=== PATIENT | female | born 1955 | race Caucasian/White ===

== ENCOUNTER → 2020-09-23 12:01 | Outpatient (CLI) | payer BC, SELFPAY | PROVIDERS: Visit Provider Nurse Practitioner Family | DX: Z20.822 Contact with and (suspected) exposure to COVID-19 (principal); U07.1 COVID-19 | CPT/HCPCS: U0003 ==

== ENCOUNTER 2022-03-11 11:25 | Emergency (ER) | payer BC, SELFPAY ==
--- NOTE | 2022-03-11 11:39 | PC.NURSE ---
DR BECERRA AT BEDSIDE TO EVALUATE PT
[2022-03-11 11:40] VITALS: BP 171/92; PULSE 77; RESP 17; TEMP 36.7; O2SAT 100; BMI 34.9
--- NOTE | 2022-03-11 11:41 | CT_ITS ---
PROCEDURE INFORMATION: Exam: CT Head Without Contrast Exam date and time: 03/11/2022 11:51 AM Age: 66 years old Clinical indication: Injury or trauma; Fall; Blunt trauma (contusions or hematomas); Without loss of consciousness; Additional info: Closed head injury with hematoma-- right side of forehead hit door knob when she fell TECHNIQUE: Imaging protocol: Computed tomography of the head without contrast. Radiation optimization: All CT scans at this facility use at least one of these dose optimization techniques: automated exposure control; mA and/or kV adjustment per patient size (includes targeted exams where dose is matched to clinical indication); or iterative reconstruction. Other protocol: This patient has received 0 known CTs and 0 known cardiac nuclear medicine studies in the 12 months prior to the current study. COMPARISON: No relevant prior studies available. FINDINGS: Brain: No acute post-traumatic brain injury. Symmetric caliber of the cortical sulci. Cerebral ventricles: Normal configuration of the ventricles. Paranasal sinuses: Low-grade left maxillary sinus mucoperiosteal disease. Mastoid air cells: No mastoid effusion. Bones/joints: No acute calvarial injury. Soft tissues: Right frontal scalp hematoma. IMPRESSION: 1. Right frontal scalp hematoma. 2. No acute post-traumatic brain injury.
--- NOTE | 2022-03-11 11:42 | [facility].EDFALL ---
Discharge Plan Disposition Patient Disposition: Home, Self-Care Condition: Fair Prescriptions Prescriptions: No Action amoxicillin-pot clavulanate 875-125 mg tablet 1 tab PO Q12H 10 Days Qty: 20 0RF Referrals Follow up/Referrals: Paulie Tomas MD [Primary Care Provider] - See instructions Activity Restrictions/Add. Instructions Additional Instructions/Restrictions: Return immediately to the emergency department if you worsen in any way. You may apply cold compresses to the affected area on your forehead. You may take Tylenol as needed for your pain. Please follow-up with your primary care doctor in about 5 days if you do not notice any improvement. Clinical Impressions Clinical Impression: Forehead contusion Instructions Patient Instructions: DI for Contusion Discharge ED Provider: Ayanna Adame HPI General Chief Complaint: Head Injury Stated Complaint: Fell and hit head Time Seen by Provider: 03/11/22 11:43 Mode of Arrival: Ambulatory Source of Information: Patient and Relative History of Present Illness HPI Narrative: The patient presents to the emergency department accompanied by her son after she tripped over a dog about half an hour ago. She struck her forehead against a doorknob. She denies any other injuries. She denies loss of consciousness. She denies nausea or vomiting. Related Data Previous Rx's Medication Instructions Recorded amoxicillin 875 mg-potassium 1 tab PO Q12H sinusitis 10 days 09/23/20 clavulanate 125 mg tablet #20 tabs Allergies Allergy/AdvReac Type Severity Reaction Status Date / Time No Known Allergies Allergy Verified 09/23/20 10:59 [facility] Disclaimer: The information contained in this section may have been updated after the patient was seen, as this information can be updated by other users. Social History Smoking Status: Never smoker alcohol intake: never substance use type: denies use current occupational status: other Travel in the last 8 weeks: Inside the [facility] ([place]) housing: house ROS Obtained: Yes All systems reviewed & no additional complaints except as documented Physical Exam General General appearance: alert Comment: There is a hematoma with an abrasion on the right forehead. Eye Eye exam: Present normal appearance, PERRL and EOMI; Absent scleral icterus ENT ENT exam: Present normal exam and TM's normal bilaterally Neck Neck exam: Present normal inspection and full ROM; Absent tenderness or meningismus Chest Chest inspection: Present normal inspection and symmetric chest wall rise; Absent tenderness Respiratory Respiratory exam: Present normal lung sounds bilaterally; Absent respiratory distress or accessory muscle use Cardiovascular Cardiovascular exam: Present regular rate, normal rhythm and normal heart sounds Abdominal Exam Abdominal exam: Present soft and normal bowel sounds; Absent distention, tenderness, heel tap sign, Downey's sign, Rovsing's sign, tenderness at McBurney's Point or mass Extremities Exam Extremities exam: Present normal inspection and full ROM Back Exam Back exam: Present normal inspection; Absent CVA tenderness (R) or CVA tenderness (L) Neurological Exam Neurological exam: Present alert and oriented X3 Psychiatric Psychiatric exam: Present normal affect and normal mood Skin Skin exam: Present warm, dry, intact and normal color Medical Decision Making Ace Inquiry Pt receiving controlled substance: No Vital Signs: 03/11/22 11:40 Temperature 98.0 F Temperature Source Oral Pulse Rate [Radial] 77 Respiratory Rate 17 Blood Pressure [Right Arm] 171/92 H Blood Pressure Mean [Right Arm] 118 Blood Pressure Source [Right Arm] Automatic Cuff Blood Pressure Position [Right Arm] Sitting 02 Sat by Pulse Oximetry 100 Oxygen Delivery Method Room Air Orders (Tests/Meds): ORDERS Category Date Time Status CT head/brain wo con Stat Cat Scan 03/11/22 11:41 Comp
--- NOTE | 2022-03-11 11:48 | PC.NURSE ---
PT TO CT AT THIS TIME
--- NOTE | 2022-03-11 11:54 | PC.NURSE ---
Patient back from CT
--- NOTE | 2022-03-11 11:54 | PC.NURSE ---
PT RETURNED FROM CT
[2022-03-11 12:01] VITALS: BP 145/80; PULSE 74; RESP 17; O2SAT 99
[2022-03-11 12:20] VITALS: BP 145/80; PULSE 75; RESP 16; TEMP 36.7; O2SAT 99
== END 2022-03-11 12:20 | disposition home or self-care (01) ==
LOC: UTC 11:33 → ER 11:34
PROVIDERS: Emergency Provider Emergency Medicine; PCP Family Medicine
DX: S00.83XA Contusion of other part of head, initial encounter (principal); W01.0XXA Fall on same level from slipping, tripping and stumbling without subsequent striking against object, initial encounter
CPT/HCPCS: 70450; 99284